=== PATIENT | male | born 1965 | race Caucasian/White ===

== ENCOUNTER 2016-10-20 14:02 | Emergency (ER) | payer BC ==
[~2016-10-20] VITALS: Ht 177.8 cm; Wt 115.2 kg
[2016-10-20] MEDS ORDERED: [UNRECOGNIZED DRUG - OTHER] (14:10)
[2016-10-20] MEDS ORDERED: ADDERALL PO (14:10)
[2016-10-20] MEDS ORDERED: DULERA 100 MCG/13 GM IH (14:10)
[2016-10-20 16:24] VITALS: BP 129/82
== END 2016-10-20 16:25 | disposition home or self-care (01) ==
LOC: EME 14:02
DX: S43.102A Unspecified dislocation of left acromioclavicular joint, initial encounter (principal); I10 Essential (primary) hypertension; J45.909 Unspecified asthma, uncomplicated; W00.9XXA Unspecified fall due to ice and snow, initial encounter; Y93.23 Activity, snow (alpine) (downhill) skiing, snowboarding, sledding, tobogganing and snow tubing; Y92.838 Other recreation area as the place of occurrence of the external cause
CPT/HCPCS: 71020; 73030